=== PATIENT | male | born 1945 | race Caucasian/White ===

== ENCOUNTER → 2018-05-23 | Outpatient (CLI) | payer OTHER | LOC: FIMAGING 09:57 | PROVIDERS: ATTEND Internal Medicine | DX: R94.02 Abnormal brain scan (principal); G31.9 Degenerative disease of nervous system, unspecified ==

== ENCOUNTER → 2018-06-20 | Outpatient (CLI) | payer OTHER ==
--- NOTE | 2018-06-21 12:57 | CPEEG ---
DATE OF STUDY: 06/20/2018 DATE OF INTERPRETATION: 06/21/2018 INTERPRETATION: This EEG contains a mild degree of focal slowing over the left temporal head region. These findings would be consistent with a mild focal disturbance of cerebral function in these nicole ons. There were no potentially epileptogenic abnormalities present during the recording. REPORT: This EEG contains 10 Hz alpha activity to the posterior head regions. The primary feature o f this recording was the presence of mild focal slowing over the left temporal head region composed o f theta frequency and minimal low amplitude delta activity on an intermittent basis. There was no ab normal epileptiform activation at rest, during photic stimulation or hyperventilation. The patient b ecame drowsy and fell asleep during the study. There was no abnormal activation during drowsiness, s leep, or during times of arousal. /[id number]/MODL
== END ==
LOC: FCPNEURO 09:49
PROVIDERS: ATTEND Psychiatry & Neurology Neurology
DX: R41.3 Other amnesia (principal)

== ENCOUNTER → 2018-07-12 | Outpatient (CLI) | payer OTHER | LOC: BMCIMAGING 10:31 | PROVIDERS: ATTEND Emergency Medicine | DX: M25.762 Osteophyte, left knee (principal); M25.462 Effusion, left knee ==

== ENCOUNTER → 2018-07-23 | Outpatient (CLI) | payer OTHER | LOC: FIMAGING 08:49 | PROVIDERS: ATTEND Physician Assistant | DX: S83.521A Sprain of posterior cruciate ligament of right knee, initial encounter (principal); M66.0 Rupture of popliteal cyst; M22.41 Chondromalacia patellae, right knee ==